=== PATIENT | female | born 1975 | race Caucasian/White ===

== ENCOUNTER 2018-02-16 14:24 | Emergency (ER) | payer MEDICAID, SELFPAY ==
[2018-02-16 14:26] VITALS: BP 135/84; PULSE 83; RESP 16; TEMP 36.9; O2SAT 100; BMI 24.5
--- NOTE | 2018-02-16 14:42 | EKG12_ITS ---
Test Reason : CP Blood Pressure : / mmHG Vent. Rate : 082 BPM Atrial Rate : 082 BPM P-R Int : 108 ms QRS Dur : 070 ms QT Int : 374 ms P-R-T Axes : 080 064 046 degrees QTc Int : 436 ms Sinus rhythm with sinus arrhythmia with short ID Otherwise normal ECG Confirmed by TEMO ENRIQUEZ, HITESH ([id number]), supervising editor trailer DARLENE NAYAK ([id number]) on 02/20/2018 1:05:15 PM Referred By: HE[facility]EN Confirmed By:HITESH PLASCENCIA MD
[2018-02-16 14:55] LABS: Absolute Lymphocyte Count 1.16 X10^3/ul (0.83-4.51); Absolute Neutrophil Count 3.1 X10^3/uL (2.0-7.7); Basophil# 0.02 X10^3/uL; Basophil% 0.4 % (0-1); Eosinophil# 0.05 X10^3/uL; Hemoglobin 14.3 g/dl (12.0-15.0); Lymphocyte # 1.16 X10^3/ul (4.0); Mean Corpuscular Hgb 30.8 pg (27.0-32.0); Mean Corpuscular Volume 90.3 fL (81-99); Mean Platelet Vol. 9.9 fl (6.2-12.0); Monocyte# 0.48 X10^3/uL; Monocyte% 9.9 % (0-10); Neutrophil # 3.12 X10^3/uL (2.7-7.7); Neutrophil % 64.7 % (47-70); Platelet Count 300 K/mm3 (150-450); RBC Distribution Width CV 12.4 % (11.6-14.6); RBC Distribution Width SD 40.7 fl (35.1-43.9); Red Blood Count 4.65 M/mm3 (4.2-5.4); White Blood Count 4.8 K/mm3 (4.4-11.0)
[2018-02-16 14:56] LABS: POSITIVE COUNT NO; POSITIVE DIFFERENTIAL NO; POSITIVE MORPHOLOGY NO
--- NOTE | 2018-02-16 15:00 | RAD_ITS ---
STUDY: X-RAY CHEST REASON FOR EXAM: Female, 42 years old. Chest pain. TECHNIQUE: Single AP portable view of the chest. COMPARISON: None. FINDINGS: The lungs are clear and expanded. There is no demonstrated pleural abnormality. Normal size heart. Normal mediastinum and janusz. Normal visualized pulmonary arteries. Normal visualized aortic arch and descending thoracic aorta. Normal visualized thoracic spine. Normal visualized ribs, clavicles, and shoulders. There is no demonstrated abnormality of the visualized soft tissue structures of the upper abdomen. RAD/Chest 1 View (Portable) IMPRESSION: No evidence of acute cardiopulmonary process. Electronically Signed: John Phillip DO at 15:12 EDT , Service support ,
[2018-02-16] MEDS: 0.9% Normal Saline 1,000 ML 1000 ML IV (15:01)
[2018-02-16 15:17] LABS: Anion Gap 6 (5-15); BUN 17 mg/dL (7-18); BUN/Creat Ratio 14.8 RATIO (10-20); Calcium,Total 8.7 mg/dL (8.5-10.1); Chloride 106 mmol/L (98-107); Creatinine, Serum 1.15 mg/dL (0.55-1.02); EST Glomerular Filtration Rate 55 mL/min (>60); Est Glom Filt Rate - Afr Amer 66 mL/min (>60); Estimated Creatinine Clearance 52.18 ml/min; Glucose 93 mg/dL (74-106); Potassium 3.7 mmol/L (3.5-5.1); Sodium Level 142 mmol/L (136-145)
[2018-02-16 15:40] VITALS: BP 118/78; PULSE 87; RESP 16; O2SAT 98
[2018-02-16] MEDS: Meclizine HCl 25 MG Tablet PO (15:41)
[2018-02-16 15:42] VITALS: BP 118/78; PULSE 85; RESP 18; O2SAT 98
--- NOTE | 2018-02-16 15:48 | ED.VISSUMM ---
- ER Visit Summary Date of Service: 02/16/18 Chief Complaint: Dizziness and chest pain History of Present Illness: The patient is a 42 F who states she was driving to [employer] today and felt sudden onset of spinning sensation. She had mild nausea. She is a history of vertigo but never this severe. Patient reports a bubble of pain in her lower chest. She has had history of similar in the past and thinks it secondary to gas. She tells me she had a mini heart attack earlier this year. She was seen at [facility] for this. She denies having a heart cath or stents. I was able to review records and clinic think. Patient's enzymes were normal and her stress test was negative. Physical Examination: Vital signs are unremarkable. Patient sitting upright in bed no acute distress. Head neck examination does reveal mild horizontal nystagmus. Heart is regular rate and rhythm. Lung sounds are clear. Abdomen is soft nontender. Neuro exam is unremarkable. Test Results: Chest x-ray shows no acute process. EKG is sinus 82 with no sign of acute ischemia. CBC and chemistry studies significant only for creatinine 1.15. Troponin is less than 0.015. TSH is 0.90. Emergency Department Course and Treatment: Patient is given IV fluids and Antivert. She has been able to ambulate to the restroom and back. She will be test walked with anticipation for discharge to home. She has a prescription for Antivert. Treatment Plan: [] Disposition: Discharge Impression: Vertigo, improved Atypical chest pain This note was generated with [employer] dictation software. It may contain incorrect words, spelling, and punctuation that were not noted in review of the chart prior to signing ED Disposition - Plan for ED Patient: Chief Complaint: Chest Pain Instructions: ED BPV Vertigo Prescriptions: Meclizine HCl [Antivert] 25 mg PO 4X/DAY PRN PRN #20 tablet PRN Reason: Dizziness Referrals: [facility] Doctor,Out of [Primary Care Provider] -
--- NOTE | 2018-02-16 16:00 | ED.DEP ---
ED Disposition - Plan for ED Patient: Disposition: Home or Assisted Living Chief Complaint: Chest Pain Instructions: ED BPV Vertigo Prescriptions: Meclizine HCl [Antivert] 25 mg PO 4X/DAY PRN PRN #20 tablet PRN Reason: Dizziness Referrals: [facility],Out of [Primary Care Provider] -
[2018-02-16 16:43] VITALS: BP 105/53; PULSE 78; RESP 16; O2SAT 97
[2018-02-16 16:46] VITALS: BP 105/53; PULSE 78; RESP 16; O2SAT 97
== END 2018-02-16 17:03 | disposition home or self-care (01) ==
PROVIDERS: Emergency Provider Emergency Medicine
DX: R42 Dizziness and giddiness (principal); R07.89 Other chest pain; R11.0 Nausea; I25.2 Old myocardial infarction; Z79.899 Other long term (current) drug therapy; Z87.891 Personal history of nicotine dependence; Z90.710 Acquired absence of both cervix and uterus
CPT/HCPCS: 71045; 80048; 84443; 84484; 85025; 93005; 99285